=== PATIENT | female | born 1990 | race Hispanic/Latino ===

== ENCOUNTER 2018-12-11 05:06 | Emergency (ER) | payer SELFPAY ==
--- OUTSIDE RECORDS SUMMARY | 2018-12-11 05:08 | XMS REPORT ---
:1990 [facility] Address [address] [place] [address] Dr. Connell[address] [place] [id number] Care Team Providers Name Role Phone Unavailable Unavailable Unavailable Problems This patient has no known problems. Allergies, Adverse Reactions, Alerts This patient has no known allergies or adverse reactions. Medications This patient has no known medications.
[2018-12-11 07:03] LABS: Absolute Lymphocytes (CBC) 1.6 K/uL (0.7-4.9); Absolute Monocytes 0.9 K/uL (0.1-1.3); Basophils % 0.7 % (0-1.3); Eosinophils % 1.5 % (0-4.4); Lymphocytes % 16.9 % (15.3-44.8); MPV 8.1 fL (7.6-11.3); Monocytes % 8.8 % (3.3-12.3); RBC Red Blood Cell Count 4.57 M/uL (3.86-4.86)
[2018-12-11 07:22] LABS: ALT/SGPT 24 U/L (12-78); AST/SGOT 12 U/L (15-37); Albumin 3.8 g/dL (3.4-5.0); Alkaline Phosphatase 100 U/L (45-117); BUN Blood Urea Nitrogen 10 mg/dL (7-18); Bicarbonate 27 mmol/L (21-32); Bilirubin Total 0.8 mg/dL (0.2-1.0); C-Reactive Protein 5.01 mg/L (<3.00); Glucose Level 96 mg/dL (74-106); Potassium 3.7 mmol/L (3.5-5.1); Protein, Total 7.5 g/dL (6.4-8.2); Sodium Level 142 mmol/L (136-145)
--- NOTE | 2018-12-11 07:53 | ER ---
Nurse's Notes [facility] Name: Alexandria Kent Age: 28 yrs Sex: Female : 1990 Arrival Date: 12/11/2018 Time: 05:07 Bed 6 Private MD: Diagnosis: Infectious mononucleosis Presentation: 12/11 05:15 Presenting complaint: Patient states: pain behind lee ears x 3 days. Was seen by PCP aa1 and has been taking Augmentin x 2 days but reports pain is not improving. Transition of care: patient was not received from another setting of care. Onset of symptoms was December 08, 2018. Risk Assessment: Do you want to hurt yourself or someone else? Patient reports no desire to harm self or others. Initial Sepsis Screen: Does the patient meet any 2 criteria? No. Patient's initial sepsis screen is negative. Does the patient have a suspected source of infection? No. Patient's initial sepsis screen is negative. Care prior to arrival: None. 05:15 Method Of Arrival: Ambulatory aa1 05:15 Acuity: JUICE 4 aa1 Triage Assessment: 05:25 Headache History: The patient has had previous headaches and this one is more severe cc3 than previous episodes. General: Appears in no apparent distress. uncomfortable, Behavior is calm, cooperative, appropriate for age. Pain: Complains of pain in behind bilateral ears Pain currently is 8 out of 10 on a pain scale. Quality of pain is described as aching, Pain began 2-3 days ago. Also complains of no other associated symptoms. EENT: Reports pain in behind bilateral ears. Neuro: Level of Consciousness is awake, alert, obeys commands, Oriented to person, place, time, situation, Appropriate for age. Cardiovascular: Patient's skin is warm and dry. Respiratory: Airway is patent Respiratory effort is even, unlabored, Respiratory pattern is regular, symmetrical. GI: Abdomen is round non-distended. : No signs and/or symptoms were reported regarding the genitourinary system. Derm: No signs and/or symptoms reported regarding the dermatologic system. Musculoskeletal: Circulation, motion, and sensation intact. Range of motion: intact in all extremities. 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 - Social history:: Smoking status: Patient/guardian denies using tobacco. - Ebola Screening: : No symptoms or risks identified at this time. Screenin:25 Abuse screen: Denies threats or abuse. Denies injuries from another. Nutritional cc3 screening: No deficits noted. Tuberculosis screening: No symptoms or risk factors identified. Fall Risk Ambulatory Aid- None/Bed Rest/Nurse Assist (0 pts). Gait- Normal/Bed Rest/Wheelchair (0 pts) Mental Status- Oriented to own ability (0 pts). Assessment: 05:15 General: Appears in no apparent distress. uncomfortable, Behavior is cooperative, jd3 appropriate for age, crying. Pain: Complains of pain in behind left and right ear/ head Quality of pain is described as aching, sharp, tender. Neuro: Level of Consciousness is awake, alert, obeys commands, Oriented to person, place, time, situation, Appropriate for age. Cardiovascular: Capillary refill < 3 seconds Patient's skin is warm and dry. Respiratory: Airway is patent Respiratory effort is even, unlabored, Respiratory pattern is regular, symmetrical. GI: No signs and/or symptoms were reported involving the gastrointestinal system. : No signs and/or symptoms were reported regarding the genitourinary system. EENT: Denies decreased hearing ringing. Derm: Skin is intact, Skin is dry, Skin is normal, Skin temperature is warm. Musculoskeletal: Circulation, motion, and sensation intact. Range of motion: intact in all extremities. 06:14 Reassessment: Patient appears in no apparent distress at this time. Patient and/or cc3 family updated on plan of care and expected duration. Pain level reassessed. Patient is alert, oriented x 3, equal unlabored respirations, skin warm/dry/pink. 07:00 Reassessment: Patient appears in no apparent distress at this time. Patient and/or jl7 family updated on plan of care and expected duration. Pain level reassessed. Patient is alert, oriented x 3, equal unlabored respirations, skin warm/dry/pink. Vital Signs: 05:24 BP 120 / 59; Pulse 84; Resp 16; Temp 98.4; Pulse Ox 100% on R/A; Weight 77.11 kg; aa1 Height 5 ft. 5 in. (165.10 cm); Pain 7/10; 06:14 BP 108 / 74; Pulse 75; Resp 17 S; Pulse Ox 99% on R/A; cc3 08:10 BP 115 / 70; Pulse 76; Resp 16 S; Pulse Ox 100% on R/A; jl7 05:24 Body Mass Index 28.29 (77.11 kg, 165.10 cm) aa1 ED Course: 05:07 Patient arrived in ED. es 05:24 Triage completed. aa1 05:24 Arm band placed on right wrist. aa1 05:25 Rachana Mcdermott is Primary Nurse. cc3 05:25 Patient has correct armband on for positive identification. Placed in gown. Bed in low cc3 position. Call light in reach. Side rails up X 1. Pulse ox on. NIBP on. 06:[address] NP is PHCP. pm1 06:09 Raul Costa MD is Attending Physician. pm1 06:50 Inserted saline lock: 20 gauge in right antecubital area, using aseptic technique. cc3 Blood collected. 07:00 Report given to OLLIE Morales and OLLIE Red. cc3 07:35 Andrew Patterson RN is Primary Nurse. jl7 08:10 No provider procedures requiring assistance completed. IV discontinued, intact, jl7 bleeding controlled, No redness/swelling at site. Pressure dressing applied. Administered Medications: No medications were administered Outcome: 07:52 Discharge ordered by MD. pm1 08:10 Discharged to home ambulatory. jl7 08:10 Condition: stable 08:10 Discharge instructions given to patient, Instructed on discharge instructions, follow up and referral plans. Demonstrated understanding of instructions, follow-up care. 08:12 Patient left the ED. jl7 Signatures: Denice Abraham RN RN aa1 Giselle Rocha Patrick, NP BENEFITS ADMINISTRATOR pm1 Andrew Patterson, OLLIE LEVIN jl7 Amadou Cain RN RN jd3 Cordel, Charlene cc3
--- NOTE | 2018-12-11 07:53 | EDPHYS ---
Physician Documentation [facility] Name: Alexandria Kent Age: 28 yrs Sex: Female : 1990 Arrival Date: 12/11/2018 Time: 05:07 Bed 6 Private MD: ED Physician Raul Costa HPI: 12/11 06:41 This 28 yrs old Female presents to ER via Ambulatory with complaints of pm1 Headache. 06:41 The patient complains of pain to the behind ears bilaterally. The patient describes the pm1 headache as aching. Associated signs and symptoms: Pertinent negatives: dizziness, fever, nausea, neck stiffness, paresthesias, rash, sinus congestion, sinus tenderness, ear pain, URI symptoms. Severity of symptoms: in the emergency department the pain is unchanged. Headache History: The patient has had previous headaches and this one is different than previous episodes. The symptoms are alleviated by nothing. the symptoms are aggravated by palpation. The patient has not experienced similar symptoms in the past. The patient has been recently seen by a physician: the patient's primary care provider, Dr. Posey with similar presenting complaints, lab tests were done, was given a prescription for antibiotics, CBC, ESR, CRP negative on Saturday. Given prescription for clarithromycin . Patient with onset of pain behind both ears on Saturday of last week. No fevers, ear pain, cough, sore throat, sinus congestion, dental pain. Patient saw PCP 3 days later and had labs drawn. Negative CBC, CRP, and Sed Rate. Given prescription for clarithromycin for lymphadenopathy. Patient presenting to ER due to no improvement in symptoms. 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 - Social history:: Smoking status: Patient/guardian denies using tobacco. - Ebola Screening: : No symptoms or risks identified at this time. ROS: 06:41 Constitutional: Negative for fever, chills, and weight loss, Eyes: Negative for injury, pm1 pain, redness, and discharge, Neck: Negative for injury, pain, and swelling, Cardiovascular: Negative for chest pain, palpitations, and edema, Respiratory: Negative for shortness of breath, cough, wheezing, and pleuritic chest pain, Abdomen/GI: Negative for abdominal pain, nausea, vomiting, diarrhea, and constipation, Back: Negative for injury and pain, : Negative for injury, bleeding, discharge, and swelling, MS/Extremity: Negative for injury and deformity, Skin: Negative for injury, rash, and discoloration, Neuro: Negative for headache, weakness, numbness, tingling, and seizure. 06:41 ENT: Negative for drainage from ear(s), ear pain, nasal discharge, rhinorrhea, sinus congestion, sinus pain, sore throat, dental pain, difficulty swallowing, difficulty handling secretions, hoarseness, acute changes. Exam: 08:07 Constitutional: This is a well developed, well nourished patient who is awake, alert, pm1 and in no acute distress. Eyes: Pupils equal round and reactive to light, extra-ocular motions intact. Lids and lashes normal. Conjunctiva and sclera are non-icteric and not injected. Cornea within normal limits. Periorbital areas with no swelling, redness, or edema. ENT: Nares patent. No nasal discharge, no septal abnormalities noted. Tympanic membranes are normal and external auditory canals are clear. Oropharynx with no redness, swelling, or masses, exudates, or evidence of obstruction, uvula midline. Mucous membranes moist. 08:07 Head/Face: Normocephalic, atraumatic. 08:07 Chest/axilla: Normal chest wall appearance and motion. Nontender with no deformity. No lesions are appreciated. Cardiovascular: Regular rate and rhythm with a normal S1 and S2. No gallops, murmurs, or rubs. Normal PMI, no JVD. No pulse deficits. Respiratory: Lungs have equal breath sounds bilaterally, clear to auscultation and percussion. No rales, rhonchi or wheezes noted. No increased work of breathing, no retractions or nasal flaring. Abdomen/GI: Soft, non-tender, with normal bowel sounds. No distension or tympany. No guarding or rebound. No evidence of tenderness throughout. Back: No spinal tenderness. No costovertebral tenderness. Full range of motion. Skin: Warm, dry with normal turgor. Normal color with no rashes, no lesions, and no evidence of cellulitis. MS/ Extremity: Pulses equal, no cyanosis. Neurovascular intact. Full, normal range of motion. 08:07 Neck: External neck: is normal, C-spine: appears grossly normal, vertebral tenderness, is not appreciated, ROM/movement: is normal, Meningeal signs: are not present, Kernig's sign is negative, Brudzinski's sign is negative, nuchal rigidity, is not appreciated, Lymph nodes: lymphadenopathy is appreciated, post auricular nodes, left occipital lymphadenopathy. 08:07 Neuro: Orientation: is normal, Motor: is normal, moves all fours, Sensation: is normal, no obvious gross deficits, Gait: is steady, at a normal pace, without difficulty. Vital Signs: 05:24 BP 120 / 59; Pulse 84; Resp 16; Temp 98.4; Pulse Ox 100% on R/A; Weight 77.11 kg; aa1 Height 5 ft. 5 in. (165.10 cm); Pain 7/10; 06:14 BP 108 / 74; Pulse 75; Resp 17 S; Pulse Ox 99% on R/A; cc3 08:10 BP 115 / 70; Pulse 76; Resp 16 S; Pulse Ox 100% on R/A; jl7 05:24 Body Mass Index 28.29 (77.11 kg, 165.10 cm) aa1 MDM: 06:17 Patient medically screened. pm1 07:24 ED course: U/S tech report: Mobile gallstones present. Normal wall thickness and no pm1 ductal dilation. 07:51 Data reviewed: vital signs. Data interpreted: Pulse oximetry: on room air is 99 %. pm1 Interpretation: normal. Counseling: I had a detailed discussion with the patient and/or guardian regarding: the historical points, exam findings, and any diagnostic results supporting the discharge/admit diagnosis, lab results, the need for outpatient follow up, to return to the emergency department if symptoms worsen or persist or if there are any questions or concerns that arise at home. 08:05 ED course: patient is breast feeding 8 month old child and wants to continue breast pm1 feeding. Patient did not want to take pain medications offered in the ER for that reason. With mother breast feeding, tramadol and codeine prescription are not worth potential risk to infant. . 12/11 06:28 Order name: CBC with Diff pm1 12/11 06:28 Order name: [place] Screen Profile; Complete Time: 07:43 pm1 12/11 06:28 Order name: CMP; Complete Time: 07:24 pm1 12/11 06:28 Order name: CRP; Complete Time: 07:24 pm1 12/11 06:28 Order name: Sed Rate pm1 12/11 07:05 Order name: Manual Differential EDMS 12/11 06:28 Order name: IV Saline Lock; Complete Time: 06:52 pm1 Administered Medications: No medications were administered Disposition: 12/11/18 07:52 Discharged to Home. Impression: Infectious mononucleosis. - Condition is Stable. - Discharge Instructions: Infectious Mononucleosis. - Medication Reconciliation Form, Thank You Letter, Antibiotic Education, Prescription Opioid Use form. - Follow up: Emergency Department; When: As needed; Reason: Worsening of condition. Follow up: Private Physician; When: 2 - 3 days; Reason: Recheck today's complaints, Continuance of care, Re-evaluation by your physician. - Problem is new. - Symptoms have improved. Signatures: Dispatcher [employer] EDMS Denice Abraham RN RN aa1 Aravind Lane, MERCEDES RISK ADVISOR pm1 Andrew Patterson RN RN jl7 Corrections: (The following items were deleted from the chart) 06:48 06:41 Headache History: Denies prior headaches. pm1 pm1 08:11 07:52 12/11/2018 07:52 Discharged to Home. Impression: Infectious mononucleosis. jl7 Condition is Stable. Forms are Medication Reconciliation Form, Thank You Letter, Antibiotic Education, Prescription Opioid Use. Follow up: Emergency Department; When: As needed; Reason: Worsening of condition. Follow up: Private Physician; When: 2 - 3 days; Reason: Recheck today's complaints, Continuance of care, Re-evaluation by your physician. Problem is new. Symptoms have improved. pm1
[2018-12-11 08:24] LABS: Blood Morphology Comment NOT SEEN (NOT SEEN); Platelet Estimate ADEQ
== END 2018-12-11 08:11 | disposition home or self-care (01) ==
LOC: ER 05:06
DX: B27.90 Infectious mononucleosis, unspecified without complication (principal); Z88.0 Allergy status to penicillin
CPT/HCPCS: 36415; 80053; 85025; 85652; 86140; 86308; 99283